=== PATIENT | female | born 1985 | race Caucasian/White ===

== ENCOUNTER 2017-03-04 05:25 | Inpatient (IN) | payer OTHER ==
--- NOTE | 2017-03-03 19:29 | HP PRE OP ---
[address] [address] PREOPERATIVE HISTORY AND PHYSICAL PATIENT: TEZ BEGUM : 1985 MR#: [id number] ADMIT: 03/04/2017 JOB ID: [id number] [facility] PREOPERATIVE HISTORY AND PHYSICAL: IDENTIFICATION: The patient is a 31-year-old, G1, P0, AB 0, woman. CHIEF COMPLAINT: Term with breech presentation, with scheduled primary section delivery, per patient request. HISTORY OF PRESENT ILLNESS: This patient has been followed prenatally at [facility], see record for details. course has been relatively uncomplicated, note 23 pounds of weight gain, declined quad screen although level 2 sonogram negative, negative GBS status, rubella immune status, and Rh positive. She is not a diabetic. Note breech presentation identified in the third trimester, confirmed as recently as March 01, 2017. I have had a thorough discussion with the patient regarding the options in light of the breech presentation. She has understood that external version attempt is a consideration, and we have discussed the pros and cons. She also has understood that primary section is an option, and we have discussed benefits and risks. She definitively determined that she would prefer delivery in this setting, all questions have been answered, no guarantees have been stated or implied. She has understood that section is a major surgery with risks of bleeding, infection, injury to the urinary tract and bowel, anesthetic risks, etc. She has had all her questions answered, no guarantees have been stated or implied, and she has signed informed consent for surgery. In summary, then, this patient is a 31-year-old woman with at 39 weeks of gestation on March 04, 2017, the date of admission for section in the setting of breech presentation, after considering alternatives. PHYSICAL EXAMINATION: On admission, height 66-1/2 inches, last weight and blood pressure in the office 179 pounds and blood pressure 110/78. Neck no thyromegaly. Lungs: Clear to auscultation and percussion. Heart: Regular in rate and rhythm. Abdomen: Fundal height 38 cm. Positive heartbeat. Breech presentation (confirmed by ultrasound as recently as March 01, 2017). IMPRESSION: 1. A 39-week . 2. Breech presentation, baby lying primarily on the left side. 3. The patient is requesting admission for primary section delivery rather then external version attempt. 4. Negative group B strep. 5. Rh positive. 6. Rubella immune. 7. Declined quad, note level 2 sonogram negative. 8. Did not do flu shot. 9. Did do Tdap (February 01). 10. Frequent cystitis history. 11. Family history of diabetes (mother), cervical cancer, "cancer" (sister, cousin, grandmother). 12. No known drug allergies. 13. control method for use ? Note prior control pill and NuvaRing use. PLAN: The patient birthdate 1985, will be admitted to [facility] on March 04, 2017 for primary section at 39 weeks of gestation at her request in light of breech presentation, preferring surgical delivery as opposed to external version attempt.
[~2017-03-04] VITALS: Ht 168.9 cm; Wt 80.7 kg
[2017-03-04] MEDS ORDERED: Hemorrhage Kit, Post Partum XX ONE ×2 (05:40→09:25)
[2017-03-04] MEDS ORDERED: Oxytocin 10 Unit/mL Inj IM PRN ×2 (05:40→09:25)
[2017-03-04] MEDS ORDERED: Carboprost 250 mCg/mL Inj IM PRN ×2 (05:40→09:25)
[2017-03-04] MEDS ORDERED: Methylergonovine 0.2 mg/mL Inj IM PRN ×2 (05:40→09:25)
[2017-03-04] MEDS ORDERED: Sodium Citrate-Citric Acid 15 mL Solution PO SCH (05:40)
[2017-03-04] MEDS ORDERED: CeFAZolin Inj 2,000 MG in Dextrose 5% 50 ML IV SCH (05:50)
[2017-03-04] MEDS: Lactated Ringer's 1,000 ML IV SCH ×4 (06:05→18:46)
[2017-03-04 06:11] LABS: Mean Corpuscular Volume 95.7 fL (81-100)
[2017-03-04] MEDS ORDERED: PNV1TABL81 PO (06:17)
[2017-03-04] MEDS ORDERED: Morphine PF 1 mg/mL 10 mL Inj ONE (07:17)
--- NOTE | 2017-03-04 07:32 | PCM.HPANE ---
Patient Data Surgeon Admitting Provider:Geronimo Ibarra MD Attending Provider:Geronimo Ibarra MD Primary Care Physician:Brayden Trevino MD Other Provider:Stew Portillo Anesthesia Reason for Visit Primary for breech Primary for breech Ht/WT & BMI Body Mass Index Allergies Coded Allergies: No Known Allergies (Unverified , 03/04/17) Diabetes History Hx Diabetes?: No MRSA MRSA: No Medications Hypertension Medication: No Home Meds Incl Beta Erika: No Reported Medications Pnv No.122/Iron/Folic Acid ( Multi Tablet)27 Mg Iron-800 Mcg Tablet1 Each PO DAILY 03/04/17 History History of ENT Problems?: No Hx of Heart Problems?: No Hx of Respiratory Problem?: No Hx Neurologic Problems?: No Hx of GI Problems?: No Hx of Problems?: No Female Hx: Positive for:: Currently Hx Musculoskeletal Problems?: No Hx of Psycho/Social Problems?: No Hx Surgeries?: No Hx Any Other Health Problems?: No Hx Diabetes: No Hx Alcohol Use: NoHx Substance Use: No Smoking Status: Never Smoker Stop/Bang Risk Assessment Category Category 1A: Patient has history of documented sleep apnea, and HAS NOT received any narcotic, sedative or anesthesia administration during this stay. Category 1B: Patient has history of documented sleep apnea, and HAS received any narcotic , sedative or anesthesia administration during this stay Category 2: Patient has SUSPECTED Obstructive Sleep Apnea, and HAS received any narcotic , sedative or anesthesia administration during this stay. Category 3: Patient has SUSPECTED Obstructive Sleep Apnea and HAS NOT received narcotic, sedative or anesthesia administration during this stay. Category 4: Outpatient in Procedural Areas with known sleep apnea or who screen positive for High Risk via the STOP/BANG questionnaire. Exam Exam General Appearance: Alert, Oriented X3 HEENT/AIRWAY: MP 2, Neck Movement (FROM) Lungs: Clear to Auscultation, Clear to Percussion Heart: Exam Unremarkable, Regular Rate/Rhythm Meds/Labs/Diagnostics Admission Meds Current Medications Lactated Ringer's (Lr) 1,000 ml @ 125 mls/hr Q8H IV Last administered on t 06:05; Start 03/04/17 at 05:40; Stop 03/04/17 at 13:39 Labs Test 03/04/17 05:55 White Blood Count 7.0th/mm3 (3.8-10.1) Red Blood Count 4.15mil/mm3 (3.90-5.20) Hemoglobin 13.3g/dL (12.0-15.6) Hematocrit 39.7% (35.0-46.0) Mean Corpuscular Volume 95.7fL (81-100) Mean Corpuscular Hemoglobin 32.0pg (27.0-35.0) Mean Corpuscular Hemoglobin Concent 33.5% (32.0-37.0) Red Cell Distribution Width 13.1% (12.3-15.4) Platelet Count 148bil/L (150-400) Plan Impression Patient chart reviewed, patient interviewed and anesthestic plan with risks, benefits, and alternatives discussed, and informed consent obtained. ASA Physical Status: ASA2 Mod Systemic Disease Anesthetic Plan: SAB Bene/Risks/Altern/Consents: Yes HP Complete Prior to Induction: Yes Dion Montaño MD Mar 04, 2017 07:12
[2017-03-04] MEDS ORDERED: EPHEDrine Sulfate 50 mg/mL Inj IVPUSH PRN ×2 (07:35→08:10)
[2017-03-04] MEDS ORDERED: Atropine 0.4 mg/mL Inj IV PRN (07:35)
[2017-03-04] MEDS ORDERED: HYDROmorphone 1 mg/mL Inj IVPUSH PRN (07:35)
[2017-03-04] MEDS ORDERED: Phenylephrine/NS-PF 100 mCg/mL 5 mL Syringe IVPUSH PRN (07:35)
[2017-03-04] MEDS ORDERED: Morphine PF 1 mg/mL 10 mL Inj INTRATHEC ONE (07:35)
[2017-03-04] MEDS ORDERED: fentaNYL-PF 50 mCg/mL 2 mL Inj IVPUSH PRN (07:35)
[2017-03-04] MEDS ORDERED: Ondansetron 2 mg/mL 2 mL Inj IVPUSH PRN ×2 (07:35→08:10)
[2017-03-04] MEDS ORDERED: Measles-Mumps-Rubella Vaccine 0.5 mL Inj SUBQ ONE (09:25)
[2017-03-04] MEDS ORDERED: TdaP Vaccine 0.5 mL Inj IM ONE (09:25)
[2017-03-04] MEDS ORDERED: hydrOXYzine Pamoate 25 mg Capsule PO PRN (09:25)
[2017-03-04] MEDS ORDERED: LANOlin HPA 7 Gm Ointment TOPICAL PRN (09:25)
[2017-03-04] MEDS ORDERED: Acetaminophen IV 1,000 MG in IV Premix 1 EACH IV PRN (09:25)
[2017-03-04] MEDS ORDERED: Oxytocin 30 Units/500 mL LR 30 UNITS in IV Premix 1 EACH IV PRN (09:25)
[2017-03-04] MEDS ORDERED: Sodium Chloride LOK Flush 10 mL Syringe IVFLUSH PRN (09:25)
[2017-03-04] MEDS ORDERED: Influenza (Adult) Vaccine 0.5 mL Syringe IM ONE (09:25)
--- NOTE | 2017-03-04 09:47 | PCM.ANEP2 ---
Post Anesthesia Evaluation ASA/CMS Post Anesthesia VS in Patient's Normal Range?: Yes Resp Stable; Airway Patent?: Yes CV Function & Hydration Stable: Yes Mental Status Recovered?: Yes Pain control Satisfactory?: Yes N/V Control Satisfactory?: Yes Dino Montaño MD Mar 04, 2017 09:47
--- NOTE | 2017-03-04 09:47 | PCM.ANEP1 ---
Post Anesthesia Phase 1 PACU Phase 1 Assessment Anesthetic Administered: SAB Level of Alertness: Awake, talking GAN's with Equal Strength: No (sab) Pain: No Nausea or Vomiting: No Lungs: Clear to Auscultation, Clear to Percussion Summary See anesth record for PACU VS. PACU VSS Dion Montaño MD Mar 04, 2017 09:47
[2017-03-04] MEDS ORDERED: Ondansetron 2 mg/mL 2 mL Inj ONE (13:28)
[2017-03-04] MEDS ORDERED: Glycopyrrolate 0.2 MG/ML 1mL Inj ONE (13:28)
[2017-03-04] MEDS ORDERED: Oxytocin 10 Unit/mL Inj ONE (13:28)
[2017-03-04] MEDS ORDERED: EPHEDrine/NS 5 mg/mL 5 mL Syringe ONE (13:28)
[2017-03-04] MEDS ORDERED: Phenylephrine 10,000 mCg/mL Inj ONE (13:28)
[2017-03-04] MEDS: oxyCODONE-Acetamin 5-325 mg Tablet PO PRN (13:44)
[2017-03-04] MEDS: CeFAZolin Inj 2,000 MG in Dextrose 5% 50 ML IV SCH (15:39)
[2017-03-05] MEDS: CeFAZolin Inj 2,000 MG in Dextrose 5% 50 ML IV SCH (00:17)
[2017-03-05] MEDS: Lactated Ringer's 1,000 ML IV SCH ×2 (01:21→09:21)
[2017-03-05 05:57] LABS: Mean Corpuscular Hemoglobin 31.6 pg (27.0-35.0); Mean Corpuscular Volume 96.6 fL (81-100)
--- NOTE | 2017-03-05 06:48 | OP ---
[address] [address] OPERATIVE REPORT PATIENT: TEZ BEGUM : 1985 MR#: [id number] ADMIT: 03/04/2017 JOB ID: [id number] DATE OF SURGERY: 03/04/2017 SURGEON: Geronimo Ibarra MD. E[employer] SALTS COMPOUNDER: Robe Lal MD. ANESTHESIA: Spinal. PREOPERATIVE DIAGNOSIS(ES): 1. A 39-week . 2. Current breech presentation. POSTOPERATIVE DIAGNOSIS(ES): 1. A 39-week . 2. Current breech presentation. PROCEDURES PERFORMED: Primary low transverse section. FINDINGS AT SURGERY: Fetus was in aparna breech presentation. Amniotic fluid was clear. Fallopian tubes and ovaries were normal. Note that at procedure's close baby had been delivered, and had been active, crying and vigorous on the operative field. Note no internal bleeding at procedure's close. There had been some mild uterine atony and blood loss of a little greater than average at 600 cc, although uterus contracted well and no internal bleeding noted at any site by end of procedure. Instrument, needle and sponge counts were all found to be correct. It certainly is anticipated that mother and baby will do very well during the timeframe. PROCEDURE: The patient was placed in the supine position on the operating table after activation of spinal anesthesia. She was repositioned in left lateral tilt position and Trinh catheter was placed. The abdomen was then prepped and draped in the usual sterile manner. Appropriate time-out was taken. Anesthesia level was checked and was brought into the room. A Pfannenstiel incision was then made through the skin and subcutaneous tissue and fascial layer with electrocautery utilized where needed. Rectus muscles were then from the overlying fascia using blunt and sharp dissection and the rectus muscles then in midline and the peritoneal cavity was carefully entered. The vesicouterine peritoneal fold was then incised and transverse incision was made in the lower uterine segment down to the amniotic sac, which was then ruptured and clear fluid recovered. Breech was then brought to the incision and carefully delivered with appropriate fundal pressure applied carefully. Delivery was atraumatic. Baby was active, crying and vigorous on the operative field. There was thus one minute of delay before cord clamping and then infant was carried to the warmer for further nurse management. Cord blood was obtained for routine studies and placenta with membranes were then massaged from the uterus, intact. Uterus was then exteriorized and the uterine cavity gauze curettaged. Cervix was noted to be at 2 cm dilated. Uterus contracted somewhat and became small, although mildly atonic/somewhat soft. This ultimately resolved with ongoing uterine massage plus intravenous Pitocin infusion, plus 250 mcg of Hemabate given intramuscularly peripherally per Anesthesia. Blood loss in the 600 cc range. Uterine incision was closed in a running, locking manner using #1 chromic suture followed by an overlying running stitch of #1 chromic suture, not locking, with complete hemostasis achieved. This completed the double-layer closure. Ovaries and tubes were inspected and the cul-de-sac area was then irrigated and then suctioned of blood and clots and fluid. The uterus was then returned to abdominal cavity and gutter areas were cleared of blood and clots. Final uterine wall incision inspection demonstrated no bleeding or hematoma formation. Bladder area was inspected and there was no bleeding. Instrument, needle and sponge counts were found to be correct. Rectus muscles were then drawn together across the midline using interrupted stitches of #1 chromic suture. Subfascial plane was then inspected and cautery applied where needed. Fascial layer was then closed in a running manner using #1 PDS, yet, with great care given to bury the knot on each end. Subcutaneous tissues were inspected and cautery applied where needed. Subcutaneous stitching was not needed. Skin incision was then closed with rachel and there was no bleeding. Uterus was massaged with expulsion of blood and clots. Pressure dressing was applied and procedure was complete. Patient was taken to her room for recovery. ESTIMATED BLOOD LOSS: 600 cc. COMPLICATIONS: None. PROGNOSIS: Good for surgical recovery. [facility]
[2017-03-05] MEDS: oxyCODONE-Acetamin 5-325 mg Tablet PO PRN ×3 (10:21→19:56)
[2017-03-06] MEDS: oxyCODONE-Acetamin 5-325 mg Tablet PO PRN ×4 (00:32→12:07)
--- NOTE | 2017-03-06 12:47 | PCM.DIOB ---
Obstetrical Disch Instruction Dates of Hospitalization Date of Hospital Admission Mar 04, 2017 at 05:25 Providers Admitting Physician: Geronimo Ibarra MD Primary Care Physician: Brayden Trevino MD Attending Physician: Geronimo Ibarra MD Discharge Diagnosis Problems: (1) Status: Acute ICD Code: Z33.1 (2) Breech presentation Status: Acute ICD Code: O32.1XX0 Diet Discharge Diet: No restrictions Activity Discharge Activity-General: Pelvic Rest for 6 weeks, No lifting >10 pounds for 4-6 weeks Dressing and Incisional Care Dressing Care: Allow Steri Stripes to fall off Hygiene: May shower, DO NOT soak incision under water Follow Up Plan Follow-up appointment: Weeks (Follow up in 2 and in 6 weeks for / postoperative checkups.) Call your provider for: Fever or Chills, Shortness of breath, Heavy vaginal bleeding, Red painful breasts Geronimo Ibarra MD Mar 06, 2017 12:47
[2017-03-06] MEDS ORDERED: OXYC1TAB24 PO (12:52)
[2017-03-06] MEDS ORDERED: IBUP-1827 PO (12:52)
[2017-03-06] MEDS ORDERED: DOCU-41 PO (12:52)
[2017-03-06 13:53] VITALS: BP 125/77; PULSE 83; RESP 17
[2017-03-06] MEDS ORDERED: Carboprost 250 mCg/mL Inj IM ONE (14:49)
--- NOTE | 2017-03-07 07:50 | PROG NOTE ---
[address] [address] PROGRESS NOTE PATIENT: TEZ BEGUM : 1985 MR#: [id number] ADMIT: 03/04/2017 JOB ID: [id number] [facility] NOTE: DATE: 03/05/2017 day number one/postop day number one note could not be located for this date, and thus I am dictating note again. SUBJECTIVE: The patient underwent primary section for breech on March 04, 2017. During the /postoperative timeframe into March 05, 2017, the patient has done well with stable vitals, afebrile, ambulating, voiding, with reasonable bleeding and pain management, without leg pain or shortness of breath, and handling baby well. Postop hemoglobin was 11.1 with platelets of 126 (148 on admission). No concerns. PLAN: Continue postoperative/ care, anticipate discharge to home on March 06, 2017, the second postoperative/ day.
--- NOTE | 2017-03-13 00:47 | DIS ---
[address] [address] DISCHARGE SUMMARY PATIENT: TEZ BEGUM : 1985 MR#: [id number] ADMIT: 03/04/2017 JOB ID: [id number] DIS: 03/06/2017 DISCHARGE DIAGNOSES: 1. Term , delivered. 2. Breech presentation. PROCEDURE PERFORMED DURING HOSPITALIZATION: Primary low transverse section. HOSPITAL COURSE: The patient was admitted [facility] on March 04, 2017, on which day she underwent primary low transverse section in the setting of breech presentation. She had declined the external version option. During the timeframe, patient did well, with stable vitals, afebrile, with reasonable bleeding, ambulating, and handling baby well. She had no incisional problems, no leg pain or shortness of breath. She requested discharge to home on the second postoperative/ day, i.e. on March 06, 2017. DISCHARGE PROGRAM: Patient will call if she has any high fever, heavy bleeding, incisional or other problem, yet otherwise she will follow up at two and at six weeks for postoperative/ checkups. She will observe pelvic rest, not do any heavy lifting for six weeks. Osmond were discontinued prior to discharge, with benzoin and half-inch Steri-Strip application. Prescriptions were given for discharge medications, including medications for pain, as well as a stool softener. She will also use vitamin daily while nursing.
== END 2017-03-06 14:50 | disposition home or self-care (01) | DRG 765 ==
LOC: FBC 05:25 → EDSTATUS 07:15
PROVIDERS: ADMIT Obstetrics & Gynecology; ATTEND Obstetrics & Gynecology
PROC: 10D00Z1 Extraction of Products of Conception, Low, Open Approach (ICD-10-PCS; principal; 2017-03-05)
DX: O32.1XX0 Maternal care for breech presentation, not applicable or unspecified (principal); O72.1 Other immediate postpartum hemorrhage; Z3A.39 39 weeks gestation of pregnancy; Z37.0 Single live birth